=== PATIENT | male | born 1990 | race Caucasian/White ===

== ENCOUNTER 2019-03-25 15:22 | Emergency (ER) | payer SELFPAY, OTHER ==
[2019-03-25] MEDS: IBUPROFEN 200 MG TAB PO (16:36)
[2019-03-25] MEDS: DIPHTH/TET/ACEL PERTUSS (ADULT) 0.5 ML VIAL IM* (16:36)
[2019-03-25] MEDS: ACETAMINOPHEN 650MG/20.3ML CUP PO (16:36)
[2019-03-25] MEDS: LIDOCAINE 2%/EPI MPF (SDV) 20 ML VIAL INJ (16:57)
== END 2019-03-25 17:32 | disposition home or self-care (01) ==
LOC: FTE 15:22
DX: S51.011A Laceration without foreign body of right elbow, initial encounter (principal); W18.39XA Other fall on same level, initial encounter; Y92.89 Other specified places as the place of occurrence of the external cause; Z23 Encounter for immunization
CPT/HCPCS: 12002; 90471; 90715; 99283-25

== ENCOUNTER 2019-04-05 09:44 | Emergency (ER) | payer SELFPAY | END 2019-04-05 11:02 | disposition left against medical advice (07) | LOC: FTE 09:44 | DX: Z48.02 Encounter for removal of sutures (principal) | CPT/HCPCS: 99281 ==